=== PATIENT | female | born 1935 | race Caucasian/White ===

== ENCOUNTER 2022-03-12 16:22 | Emergency (ER) | payer MEDICARE, BC | END 2022-03-12 18:18 | disposition other institution (70) | LOC: JP.ED 16:22 | DX: H54.7 Unspecified visual loss (principal); I11.0 Hypertensive heart disease with heart failure; I50.9 Heart failure, unspecified; E66.9 Obesity, unspecified; Z68.41 Body mass index [BMI] 40.0-44.9, adult; Z77.22 Contact with and (suspected) exposure to environmental tobacco smoke (acute) (chronic) | CPT/HCPCS: 99282; 99284 ==

== ENCOUNTER 2024-03-29 12:06 | Emergency (ER) | payer MEDICARE, BC ==
[2024-03-29] MEDS ORDERED: Sodium Chloride 0.9% 10 ML Syringe FLUSH PRN (13:15)
[2024-03-29 13:19] LABS: BASOPHILS ABSOLUTE AUTO 0.05 K/uL (0.00-0.10); BASOPHILS PERCENT AUTO 0.6 % (0.1-1.3); EOSINOPHILS ABSOLUTE AUTO 0.07 K/uL (0.00-0.40); EOSINOPHILS PERCENT AUTO 0.8 % (0.0-5.4); HEMATOCRIT 29.1 % (34.3-46.0); HEMOGLOBIN 9.8 g/dL (11.2-15.5); IMMATURE GRAN ABSOLUTE AUTO 0.03 K/uL (0.00-0.23); IMMATURE GRAN PERCENT AUTO 0.3 % (0.0-0.7); LYMPHOCYTES ABSOLUTE AUTO 1.06 K/uL (0.8-3.3); LYMPHOCYTES PERCENT AUTO 11.8 % (11.4-47.7); MEAN CORPUSCULAR HEMOGLOBIN 30.8 pg (31.6-35.5); MEAN CORPUSCULAR HGB CONC 33.7 g/dL (31.6-35.5); MEAN CORPUSCULAR VOLUME 91.5 fL (81.4-99.0); MONOCYTES ABSOLUTE AUTO 0.65 K/uL (0.20-0.90); MONOCYTES PERCENT AUTO 7.3 % (3.3-12.6); NEUTROPHILS PERCENT AUTO 79.2 % (40.0-78.1); PLATELET COUNT,PLT 316 K/uL (130-375); RED BLOOD CELL COUNT 3.18 M/uL (3.77-5.24)
[2024-03-29 13:49] LABS: C-REACTIVE PROTEIN 0.95 mg/dL (<0.50); CALCIUM 8.2 mg/dL (8.5-10.1); CREATININE 1.8 mg/dL (0.6-1.0); EST CRCL DRUG DOSING (CG) 16.11 mL/min; POTASSIUM,K 4.9 mmol/L (3.6-5.2)
[2024-03-29 13:51] LABS: ANION GAP 12.9 mmol/L (5.0-14.0)
[2024-03-29 13:52] LABS: TROPONIN I HIGH SENSITIVITY 105.9 pg/mL (<=60.3)
[2024-03-29] MEDS: Sodium Chloride 0.9% 1,000 ML IV ONE (14:22)
== END 2024-03-29 16:45 | disposition home or self-care (01) ==
LOC: JP.ED 12:06
DX: J18.9 Pneumonia, unspecified organism (principal); I11.0 Hypertensive heart disease with heart failure; I50.9 Heart failure, unspecified; R79.89 Other specified abnormal findings of blood chemistry; E66.9 Obesity, unspecified; Z87.891 Personal history of nicotine dependence; Z68.36 Body mass index [BMI] 36.0-36.9, adult; Z79.82 Long term (current) use of aspirin; Z79.899 Other long term (current) drug therapy
CPT/HCPCS: 36415; 71046; 71046-26; 80048; 83605; 83880; 84145; 84484; 85025; 86140; 93005; 93010; 96360; 96361; 99284; 99285-25; J7030

== ENCOUNTER 2024-04-02 12:01 | Emergency (ER) | payer MEDICARE, BC | END 2024-04-02 13:41 | disposition home or self-care (01) | LOC: JP.ED 12:01 | DX: F41.9 Anxiety disorder, unspecified (principal); I11.0 Hypertensive heart disease with heart failure; I50.9 Heart failure, unspecified; E66.9 Obesity, unspecified; Z79.82 Long term (current) use of aspirin; Z79.899 Other long term (current) drug therapy; Z68.36 Body mass index [BMI] 36.0-36.9, adult | CPT/HCPCS: 99284 ==